=== PATIENT | male | born 1965 | race Caucasian/White ===

== ENCOUNTER 2022-01-21 03:55 | Emergency (ER) | payer MEDICAID, SELFPAY ==
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
[2022-01-21 04:08] VITALS: PULSE 65; RESP 16; TEMP 36.6; O2SAT 97; BMI 25.0
[2022-01-21 05:00] VITALS: BP 121/71; PULSE 58; RESP 14; TEMP 36.6; O2SAT 97
[2022-01-21 06:00] VITALS: BP 111/68; PULSE 58; TEMP 36.6; O2SAT 98
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
[2022-01-21] MEDS: Amoxicillin/Potassium Clav 875 MG TABLET PO (07:53)
[2022-01-21] MEDS: Diphth,Pertus(ACell),Tet Adult 0.5 ML SYRINGE IM (07:53)
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
== END 2022-01-21 08:21 | disposition home or self-care (01) ==
PROVIDERS: Emergency Provider Emergency Medicine
DX: S10.97XA Other superficial bite of unspecified part of neck, initial encounter (principal); S00.211A Abrasion of right eyelid and periocular area, initial encounter; S20.211A Contusion of right front wall of thorax, initial encounter; S00.212A Abrasion of left eyelid and periocular area, initial encounter; R51.9 Headache, unspecified; M54.2 Cervicalgia; R07.89 Other chest pain; Y04.2XXA Assault by strike against or bumped into by another person, initial encounter; Y04.1XXA Assault by human bite, initial encounter; Y93.9 Activity, unspecified; Y92.9 Unspecified place or not applicable; Y99.9 Unspecified external cause status; Z79.899 Other long term (current) drug therapy
CPT/HCPCS: 70450; 70486; 71101; 90471; 90715; 99284